=== PATIENT | female | born 1985 | race Caucasian/White ===

== ENCOUNTER → 2017-08-16 | Outpatient (CLI) | payer OTHER ==
[2017-08-16 10:41] LABS: HEMATOCRIT 44.7 % (34.6-47.8); HEMOGLOBIN 15.2 g/dL (11.7-16.4); WHITE BLOOD COUNT 5.3 x10^3/uL (3.4-10)
[2017-08-16 11:17] LABS: ASPARTATE AMINO TRANSFERASE 10 U/L (15-37); BLOOD UREA NITROGEN 10 mg/dL (7-18); FERRITIN 55.7 ng/mL (8-252); TOTAL IRON BINDING CAPACITY 370 mcg/dL (250-450)
[2017-08-17 12:06] LABS: ANA DIRECT (REF) Negative (Negative)
== END | disposition home or self-care (01) ==
LOC: LAB 10:25
PROVIDERS: ATTEND Internal Medicine
DX: Z00.01 Encounter for general adult medical examination with abnormal findings (principal); D64.9 Anemia, unspecified; E28.2 Polycystic ovarian syndrome; G43.009 Migraine without aura, not intractable, without status migrainosus; L65.9 Nonscarring hair loss, unspecified
CPT/HCPCS: 36415; 80053; 80061; 82306; 82533; 82607; 82728; 82746; 83540; 83550; 84439; 84443; 84480; 85025; 86038

== ENCOUNTER 2018-05-06 20:13 | Emergency (ER) | payer OTHER ==
[~2018-05-06] VITALS: Ht 177.8 cm; Wt 64.8 kg
[2018-05-06 20:18] VITALS: BP 133/97
[2018-05-06] MEDS ORDERED: FAMOTIDINE 20 MG TABLET PO ONE (20:30)
[2018-05-06] MEDS ORDERED: DIPHENHYDRAMINE 25 MG CAPSULE PO ONE (20:30)
[2018-05-06] MEDS ORDERED: DEXAMETHASONE 4 MG TABLET PO ONE (20:30)
[2018-05-06] MEDS ORDERED: DEXAMETHASONE 4 MG TABLET ONE (20:46)
[2018-05-06] MEDS ORDERED: DIPHENHYDRAMINE 50 MG CAPSULE ONE (20:46)
[2018-05-06] MEDS ORDERED: FAMOTIDINE 20 MG TABLET ONE (20:47)
== END 2018-05-06 21:11 | disposition home or self-care (01) ==
LOC: ED 21:00
DX: L50.9 Urticaria, unspecified (principal); Z91.040 Latex allergy status
CPT/HCPCS: 99284; Q0163

== ENCOUNTER → 2018-08-06 | Outpatient (CLI) | payer OTHER ==
[2018-08-06 16:12] LABS: BASOPHILS # (AUTO) 0.08 x10^3/uL (0-0.1); BASOPHILS % (AUTO) 1 % (0-1); EOSINOPHILS # (AUTO) 0.14 x10^3/uL (0-0.4); EOSINOPHILS % (AUTO) 2 % (1-7); LYMPHOCYTES # (AUTO) 2.33 x10^3/uL (1-3.4); LYMPHOCYTES % (AUTO) 33 % (22-44); MD NO; MEAN CORPUSCULAR HEMOGLOBIN 29.8 pg (27.0-34.8); MEAN CORPUSCULAR HGB CONC 33.8 g/dL (32.4-35.8); MEAN CORPUSCULAR VOLUME 88.2 fL (80-100); MEAN PLATELET VOLUME 8.3 fL (7.4-10.4); MONOCYTES # (AUTO) 0.48 x10^3/uL (0.2-0.8); MONOCYTES % (AUTO) 7 % (2-9); NEUTROPHILS # (AUTO) 4.01 x10^3/uL (1.8-6.8); NEUTROPHILS % (AUTO) 57 % (42-75); PLATELET COUNT 385 x10^3/uL (130-400); RED BLOOD COUNT 4.93 x10^6/uL (3.82-5.3); RED CELL DISTRIBUTION WIDTH 13.8 % (9.6-15.2)
[2018-08-06 16:13] LABS: HCT (SEDRATE) 43.4 % (34.6-47.8)
== END | disposition home or self-care (01) ==
LOC: LAB 15:14
PROVIDERS: ATTEND Allergy & Immunology
DX: L50.8 Other urticaria (principal)
CPT/HCPCS: 36415; 83520; 85025; 85651; 86003; 86140; 86376; 86800

== ENCOUNTER → 2020-10-25 | Outpatient (CLI) | payer OTHER ==
[~2020-10-25] MED LIST: OMNIPAQUE 350 MG/ML, 150 ML BOTTLE ONE
== END | disposition home or self-care (01) ==
LOC: CFH 14:42
PROVIDERS: ATTEND Family Medicine
DX: N20.0 Calculus of kidney (principal); R31.0 Gross hematuria
CPT/HCPCS: 74178; Q9967

== ENCOUNTER 2020-12-09 12:17 | Outpatient (CLI) | payer OTHER | END 2020-12-09 23:59 | disposition home or self-care (01) | LOC: CFH 12:17 | PROVIDERS: ATTEND Family Medicine | DX: N64.4 Mastodynia (principal) | CPT/HCPCS: 77062; 77066; G0279 ==

== ENCOUNTER → 2021-01-24 | Outpatient (CLI) | payer OTHER ==
[2021-01-24 07:50] LABS: CALCIUM 8.9 mg/dL (8.5-10.1)
== END | disposition home or self-care (01) ==
LOC: LAB 07:20
PROVIDERS: ATTEND Urology
DX: N20.0 Calculus of kidney (principal)
CPT/HCPCS: 36415; 82310; 83970; 84550

== ENCOUNTER → 2021-01-24 | Outpatient (CLI) | payer OTHER ==
[2021-01-24 07:50] LABS: BASOPHILS % (AUTO) 2 % (0-1); EOSINOPHILS % (AUTO) 2 % (1-7); LYMPHOCYTES % (AUTO) 41 % (22-44); MEAN CORPUSCULAR HEMOGLOBIN 29.5 pg (27.0-34.8); MEAN CORPUSCULAR HGB CONC 33.2 g/dL (32.4-35.8); MEAN PLATELET VOLUME 7.6 fL (7.4-10.4); MONOCYTES % (AUTO) 8 % (2-9); NEUTROPHILS % (AUTO) 47 % (42-75); PLATELET COUNT 325 x10^3/uL (130-400); RED BLOOD COUNT 4.81 x10^6/uL (3.82-5.3); RED CELL DISTRIBUTION WIDTH 13.7 % (9.6-15.2)
[2021-01-24 07:54] LABS: ALANINE AMINOTRANSFERASE 16 U/L (12-78); ALBUMIN 3.7 g/dL (3.4-5.0); ANION GAP 4 mmol/L (5-15); CALCIUM 8.5 mg/dL (8.5-10.1); CHLORIDE 109 mmol/L (98-107); MD NO
[2021-01-24 08:06] LABS: ALKALINE PHOSPHATASE 48 U/L (45-117); BILIRUBIN,TOTAL 0.9 mg/dL (0.2-1.0); CHOL/HDL RATIO 2.4; CHOLESTEROL, TOTAL 169 mg/dL (140-239); CREATININE 0.67 mg/dL (0.55-1.02); HDL CHOL % 41 % (28-40); HDL CHOLESTEROL (DIRECT) 69 mg/dL (40-60); LDL CHOLESTEROL,CALCULATED 90 mg/dL (54-169); LDL/HDL RATIO 1.3 (0.5-3.0); TRIGLYCERIDES 52 mg/dL (50-200); VLDL CHOLESTEROL 10 mg/dL (0-25)
== END | disposition home or self-care (01) ==
LOC: LAB 07:16
PROVIDERS: ATTEND Internal Medicine
DX: Z00.00 Encounter for general adult medical examination without abnormal findings (principal); L65.9 Nonscarring hair loss, unspecified
CPT/HCPCS: 36415; 80053; 80061; 82306; 84443; 85025